=== PATIENT | male | born 1955 | race Caucasian/White ===

== ENCOUNTER 2023-01-22 06:29 | Day surgery (SDC) | payer MEDICARE, BC, SELFPAY ==
[2023-01-17 12:45] VITALS: BMI 25.0
[2023-01-22] VITALS (9 sets, daily range): BP systolic 124–181; BP diastolic 79–113; PULSE 56–80; RESP 12–25; TEMP 36.1–36.5; O2SAT 97–100; BMI 25.0
--- NOTE | 2023-01-22 | PATH_ITS ---
[facility] Accession Number: [id number] No. of containers..01 Tissue . 01 Material submitted: . spermatic cord - RIGHT SPERMATOCELE SAC . 01 Diagnosis: Specimem designated Right Spermatocele Sac, Excision: Fibroconnective and mesothelial lined fibromembranous tissue consistent with hydrocele. MRV 01/29/2023 1344 Local . 01 Electronically signed: . Wanda Noland MD, Pathologist NPI- [id number] . 01 Gross description: . The specimen is received in formalin labeled with the patient's name, , and right spermatocele sac consists of two mcgowan membranous soft tissue fragments. The first measures 5.2 x 2.4 x 0.8 cm and one aspect is inked blue. The second fragment measures 7.3 x 1.2 x 0.8 cm and on aspect is inked green. Both fragments are sectioned to reveal a mcgowan soft cut surface with no lesions identified. Captain Room Service sections are submitted in cassettes A1-A2. ([id number]) /MRV 01/24/2023 1756 Local . 01 Pathologist provided ICD-10: N43.3 . 01 CPT . 360706 Specimen Comment: A courtesy copy of this report has been sent to [phone] Performed at: 01 [facility] [address] [place] [address] Suite [facility], [place], [place] [id number] MD Chago Collins MD Phone: [phone]
[2023-01-22] MEDS: LACTATED RINGERS 1,000 ML 21 ML IV (07:22)
--- NOTE | 2023-01-22 07:24 | SUR.OPER ---
Supine on padded OR bed, head on pillow, arms secured on padded arm boards at <90 degrees abduction, legs uncrossed, safety belt at thigh, tape over blanket over lower legs.
--- NOTE | 2023-01-22 07:42 | PM.PREOP ---
Pre-operative Note COVID-19 COVID-19 status: Not tested Criteria for continued procedure: Delay expected to result in less-positive ultimate med/surg outcome and Non-surgical alternatives not available or appropriate per current SOC Interval Note History & Physical reviewed/Exam performed by Physician: Yes Changes to H&P: No
[2023-01-22] MEDS: CEFAZOLIN 2 GM/100 ML PREMIX 100 ML IV (07:45)
[2023-01-22] MEDS: BACITRACIN 28 GM OINT 1 APPLIC TOP (08:42)
--- NOTE | 2023-01-22 09:02 | P.OP_ITS ---
Procedure & Clinicians Procedure: Right hydrocelectomy Same procedure as scheduled: Yes Indications: This is a very pleasant 67-year-old gentleman who presented with right hemiscrotal enlargement was found to be a right hydrocele he finds it quite bothersome and it has been enlarging and he presents this time for right hydrocelectomy. Surgeon: Hayder Berry Click Yes if Unassisted: Yes Anesthesia Type: General Operative Notes Findings: Findings: Right hemiscrotal enlargement. 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 Patient did have some cystic changes in the tunica albuginea. Which in final analysis appeared to be benign. No other adverse findings were noted. The cord did appear quite thin and it was confirmed that there was arterial flow to the testicle via Doppler once the sac was excised. Closure Type: primary Specimen(s): other (Right hydrocele sac) Prosthetic devices, grafts, tissues, transplants, or devices: None Estimated Blood Loss (mL): 5 Blood products transfused: none Procedure in detail: Procedure in detail: After informed consent was obtained, the patient was terry ntified and brought to the operating room where he is placed in a supine position on the table. Once on the table he had anesthesia induced and maintained. The patient was then shaved, prepped, draped and prepared for right hemiscrotal procedure. Ensuring an adequate level of anesthesia a transverse mid scrotum incision was made and carried down to the layers of the dartos. The testes cord and hydrocele sac were delivered. The anterior aspect of the hydrocele sac was identified and using the cautery was entered. The opening was expanded and the hydrocele fluid evacuated. A vertical incision was then made from the margin of the epididymis up toward the cord. The excess sac was then excised with electrocautery. And sent for pathologic examination. The testis and cord were once more inspected. And given the cystic area and thinning of the cord a Doppler was brought in and was confirmed that there was normal arterial blood flow. And that there was no arterial flow in the cystic area. It did have perhaps features of a vascular malformation but no arterial flow again was noted. The edges of the hydrocele sac were then run with a running locking 2-0 chromic. Cord block was performed with local without epinephrine in the testes was returned to the scrotum. The dartos was reapproximated with a running 2-0 Vicryl skin edges reapproximated with a vertical mattress interrup erin of 2-0 chromic. The skin was infiltrated with non epinephrine local. Bacitracin Telfa fluffs scrotal support were applied. Patient was awakened having tolerated the procedure well to be transferred to the postanesthesia care unit for recovery there were no complications Complications: none Post-operative Condition: stable Disposition: PACU Plan for aftercare: Patient to be discharged to home to follow up my office in 10-14 days.
== END 2023-01-22 10:06 | disposition home or self-care (01) ==
PROVIDERS: PCP Internal Medicine; Referring Provider Urology; Visit Provider Urology
PROC: (CPT 55040; principal; 2023-01-22 07:45)
DX: N43.3 Hydrocele, unspecified (principal)
CPT/HCPCS: 55040; J0690; J1100; J1885; J2590; J2704; J3010